=== PATIENT | female | born 1940 | race Caucasian/White ===

== ENCOUNTER 2016-12-27 06:19 | Emergency (ER) | payer MEDICARE, OTHER ==
[2016-12-27 06:22] LABS: BASOPHILS 1.4 %; BASOPHILS ABSOLUTE 0.06 10/3/uL (0.0-0.16); EOSINOPHILS 4.5 %; HEMATOCRIT 37.4 % (36.0-48.0); HEMOGLOBIN 12.6 g/dL (12.0-16.0); IMMATURE GRANULOCYTES 0.5 %; IMMATURE GRANULOCYTES ABSOLUTE 0.02 10/3/uL (0.0-0.11); LYMPHOCYTES 43.3 %; LYMPHOCYTES ABSOLUTE 1.91 10/3/uL (0.67-4.30); MANUAL DIFF NO %; MEAN CORPUS HGB CONC 33.7 g/dL (32.0-36.0); MEAN CORPUSCULAR HEMOGLOB 32.6 pg (26.0-34.0); MEAN CORPUSCULAR VOLUME 96.6 fL (80-100); MONOCYTES 11.6 %; MONOCYTES ABSOLUTE 0.51 10/3/uL (0.21-1.20); NEUTROPHILS 38.7 %; NEUTROPHILS ABSOLUTE 1.71 10/3/uL (2.02-8.40); PLATELET COUNT 239 10/3/uL (150-400); RBC DISTRIBUTION WIDTH 12.3 % (12.0-16.0); RED CELL COUNT 3.87 10/6/uL (4.0-5.6); WHITE BLOOD CELLS 4.4 10/3/uL (4.5-10.5)
[2016-12-27 06:31] LABS: PARTIAL THROMBO TIME 25.9 SEC (22.5-37.2)
[2016-12-27 06:39] LABS: CALCIUM, SERUM 8.9 MG/DL (8.5-10.4); CHEST PAIN PROFILE TAT 0 Hrs 21 Mins; CHLORIDE, SERUM 107 MMOL/L (96-112); CO2 (CARBON DIOXIDE) 29 MMOL/L (24-34); CREATININE 1.09 MG/DL (0.55-1.02); GFR AFRICAN AMERICAN 57 ML/MIN (>=60); GFR NON AFRICAN AMERICAN 49 ML/MIN (>=60); GLUCOSE, SERUM 91 MG/DL (60-99); POTASSIUM, SERUM 4.4 MMOL/L (3.5-5.3); SODIUM, SERUM 144 MMOL/L (135-148); TROPONIN I <0.02 NG/ML (<0.05)
[2016-12-27 06:40] LABS: BUN (BLOOD UREA NITROGEN) 24 MG/DL (6-23)
[2017-07-03] MEDS ORDERED: PRIN20 PO (09:54)
[2017-07-03] MEDS ORDERED: MEGA RED FISH OIL PO (09:55)
[2017-07-03] MEDS ORDERED: CYANO1000T PO (09:55)
[2017-07-03] MEDS ORDERED: LOP25 PO (09:55)
[2017-07-03] MEDS ORDERED: ELIQUIS 2.5 MG2.5 MG PO (09:55)
[2017-07-03] MEDS ORDERED: VITAMIN D PO (09:56)
[2017-07-03] MEDS ORDERED: 8 HOUR650 MG PO (09:56)
== END 2016-12-27 07:30 | disposition home or self-care (01) ==
LOC: ER 06:19
PROVIDERS: Specialist
DX: R00.0 Tachycardia, unspecified (principal); I10 Essential (primary) hypertension; Z88.0 Allergy status to penicillin; Z88.2 Allergy status to sulfonamides
CPT/HCPCS: 71010; 80048; 83735; 84484; 85025; 85610; 85730; 93005; 99285